=== PATIENT | female | born 1985 | race Hispanic/Latino ===

== ENCOUNTER 2016-06-14 19:59 | Emergency (ER) | payer MEDICAID ==
[~2016-06-14 19:59] MED LIST: IBUP800T28 PO; KEP500TA PO; ONDA-53 PO; TRAM50TA2 PO
[2016-06-14] MEDS ORDERED: 0.9% Sodium Chloride 1,000 ML IV ONE (20:05)
[2016-06-14] MEDS ORDERED: levETIRAcetam Inj 1,500 MG in Dextrose 5% 100 ML IV ONE (20:10)
[2016-06-14 20:13] LABS: BASOPHILS % (AUTO) 0.4 % (0-3); EOSINOPHILS % (AUTO) 5.3 % (0-5); MONOCYTES % (AUTO) 7.3 % (4-12); Mean Corpuscular Hemoglobin 27.5 pg (27.0-35.0); Mean Corpuscular Volume 82.1 fL (81-100); NEUTROPHILS % (AUTO) 49.6 % (40-74); Platelet Count 254 bil/L (150-400)
[2016-06-14] MEDS ORDERED: Ondansetron 2 mg/mL 2 mL Inj ONE (20:36)
[2016-06-14 20:40] VITALS: BP 136/71; PULSE 80; RESP 22; O2SAT 100
--- NOTE | 2016-06-14 21:16 | DRSVH ---
PROCEDURE: X-RAY CHEST ONE VIEW, PORTABLE ([id number]) INDICATIONS: recurrent LOC TECHNIQUE: One view of the chest was acquired. COMPARISON: [facility], CR, XR CHEST 1VW (PORTABLE), 01/12/2016, 7:47. [facility], CR, XR CHEST 2VW, 01/11/2016, 2:22. FINDINGS: Surgical changes and devices: None. Lungs and pleura: No pleural effusions or pneumothorax. Mild patchy right perihilar and basilar opac ity. Mediastinum: Mediastinal contours appear normal. Heart size is normal. Bones and chest wall: No suspicious bony lesions. Overlying soft tissues appear unremarkable. IMPRESSION: Right perihilar and basilar pneumonia. Dictated by: Karlie Tuttle M.D. on 06/14/2016 at 21:14 Approved by: Karlie Tuttle M.D. on 06/14/2016 at 21:14
--- NOTE | 2016-06-14 21:18 | ED.REPORT ---
HPI-General Illness Date of Service Jun 14, 2016 ED Provider: Adolfo Henry DO It should be noted that the initial presentation of this patient was a CODE BLUE called to the waiting room, to find the patient actively seizing on the ground. Ultimately after discussion with a family member and once the patient is more awake: Patient is a 30 year old female who presents to the ED due to three possible seizures today. Associated symptoms include feeling bloated and abdominal pain since this afternoon. Per the patient's friend while the patient was dropping her kids off, she started shaking and became unresponsive. When she woke up she was confused but was responsive. The patient had another episode on the way to the ED and in the bilingual medical receptionist area where she would begin shaking and became unresponsive. Nursing Notes Stated Complaint: UNCONSCIOUS, SEIZURE Chief Complaint: Seizure Nursing Notes Reviewed: Yes Allergies: Coded Allergies: fentanyl (Verified Allergy, Severe, ended up intubated, 01/12/16) morphine (Verified Allergy, Unknown, seizure, 09/15/15) hydromorphone (Verified Adverse Reaction, Severe, "made my chest feel heavy with pressure", 09/15/15) Scheduled Levetiracetam (Keppra) 500 Mg Tablet 500 MG PO BID Levetiracetam (Keppra) 500 Mg Tablet 500 MG PO BID Ondansetron (Ondansetron) 4 Mg Tablet 4 MG PO every 4 hours PRN Scheduled PRN Ibuprofen (Ibuprofen) 800 Mg Tablet 800 MG PO TID PRN PRN For Pain Tramadol (Tramadol) 50 Mg Tablet 50 MG PO Q4H PRN PRN For Pain General Time Seen by MD: 20:09 Chief Complaint Seizure Unable to Obtain Hx: Patient condition Arrived By: Walk-in Sudden in Onset?: Yes Onset Occurred: Just prior to arrival Symptom Duration: Intermittent Recent Healthcare: No recent hospitalization, Recent doctor visit Similar Sx Previous: No Past Medical History Past Medical History seizure--non compliant Past Surgical History gallbladder hernia repair Reports: Appendectomy Smoking History Current Every Day Smoker Social History Other Social History: Good social support Ambulatory Status Independent Review of Systems ROS is limited due to patient's condition Full Review of Systems GI: Reports: Abdominal pain Neurologic: Reports: Seizure, Shaking Complete sys rev & neg: except as marked. Physical Exam initial exam: patient was actively seizing while in the ED waiting room Vital Signs Vital Signs Date Time Temp Pulse Resp B/P Pulse Ox O2 Delivery O2 Flow Rate FiO2 06/14/16 23:18 77 23 110/60 98 Room Air 06/14/16 20:40 80 22 136/71 100 Room Air Initial VS: Reviewed General/Constitutional: Awake, Alert, No acute distress Head / Eyes: Atraumatic, Normocephalic, PERRL, EOMI ENT: Atraumatic, Airway patent, Mucous membranes moist Neck: Atraumatic, Supple, Full range of motion Respiratory / Chest: Atraumatic, Breath sounds NL, Breath sounds = bilat, No respiratory distress Cardiovascular: Heart rate NL, Regular rhythm, Heart sounds NL Abdomen: Atraumatic, Soft Back: Atraumatic, Full range of motion Upper Extremities Upper Extremity / MS: Atraumatic, Full range of motion Lower Extremity / Pelvis / MS: Atraumatic, Full range of motion Skin: Atraumatic, Color NL, No rash, Warm, Dry Neurologic: Oriented X3, Speech NL, No motor deficits, No sensory deficits Psychiatric: Affect NL, Mood NL Interpretation & Diagnostics Lab Results Interpretation Result Diagram: 06/14/16200906/14/162009 Test 06/14/16 20:10 06/14/16 20:35 06/14/16 21:48 White Blood Count 11.3th/mm3 (3.8-10.1) Red Blood Count 4.76mil/mm3 (3.90-5.20) Hemoglobin 13.1g/dL (12.0-15.6) Hematocrit 39.1% (35.0-46.0) Mean Corpuscular Volume 82.1fL (81-100) Mean Corpuscular Hemoglobin 27.5pg (27.0-35.0) Mean Corpuscular Hemoglobin Concent 33.5% (32.0-37.0) Red Cell Distribution Width 13.7% (12.3-15.4) Platelet Count 254bil/L (150-400) Neutrophils (%) (Auto) 49.6% (40-74) Lymphocytes (%) (Auto) 37.2% (14-46) Monocytes (%) (Auto) 7.3% (4-12) Eosinophils (%) (Auto) 5.3% (0-5) Basophils (%) (Auto) 0.4% (0-3) Sodium Level 138mEq/L (134-144) Potassium Level 4.2mEq/L (3.5-5.2) Chloride Level 103mEq/L (97-108) Carbon Dioxide Level 20mmol/L (18-29) Blood Urea Nitrogen 16mg/dL (6-20) Creatinine 0.63mg/dL (0.57-1.00) Estimat Glomerular Filtration Rate 158mL/min (>59) Glucose Level 102mg/dL (60-99) Calcium Level 9.2mg/dL (8.5-10.1) Magnesium Level 2.0mg/dL (1.6-2.6) Total Bilirubin 0.2mg/dL (0.0-1.2) Aspartate Amino Transf (AST/SGOT) 18U/L (0-50) Alanine Aminotransferase (ALT/SGPT) 28U/L (0-32) Alkaline Phosphatase 98U/L (25-150) Total Protein 7.8g/dL (6.4-8.4) Albumin 4.4g/dL (3.4-5.0) Hold Thornton Top Tube Received (Received) Alcohols < 10mg/dL (0-10) Hold Irving Top Tube Received (Received) Urine Color Straw (YELLOW) Urine Appearance Clear (CLEAR,HAZY) Urine pH 7.5 (5.0-8.0) Urine Specific [place] 1.010 (1.003-1.035) Urine Protein Negativemg/dL (NEG,TRACE) Urine Glucose (UA) Negativemg/dL (NEGATIVE) Urine Ketones Negativemg/dL (NEGATIVE) Urine Occult Blood Negative (NEGATIVE) Urine Nitrite Negative (NEGATIVE) Urine Bilirubin Negative (NEGATIVE) Urine Urobilinogen Normalmg/dL (NORMAL) Urine Leukocyte Esterase Small (NEGATIVE) Urine RBC 0-2/hpf (0-2) Urine WBC 6-10/hpf (0-5) Urine Epithelial Cells Moderate/hpf (NONE-MOD) Urine Crystals None seen (NONE SEEN) Urine Bacteria Few/hpf (NONE-FEW) Urine Hyaline Casts None/lpf (NONE) Urine Granular Casts None seen (NONE SEEN) Urine Waxy Casts None seen (NONE SEEN) Urine Red Blood Cell Casts None seen (NONE SEEN) Urine White Blood Cell Casts None seen (NONE SEEN) Urine Mucus None seen (None Seen) Urine Trichomonas None seen (NONE SEEN) Urine Yeast None (NONE SEEN) Urinalysis Comment None Urine Culture Reflexed Indicated ECG Interpretation Time: 21:37 Interpreted by: ED physician Normal ECG Interpretation: Normal rate (79), Normal sinus rhythm X-Ray Chest Interpretation Chest Xray Interpretation: IMPRESSION: Right perihilar and basilar pneumonia. Dictated by: Karlie Tuttle M.D. on 06/14/2016 at 21:14 Approved by: Karlie Tuttle M.D. on 06/14/2016 at 21:14 View: Portable, 1 view Interpretation / Wet Read by: Interpret - Radiologist CT Head Interpretation IMPRESSION: No acute process. Dictated by: Karlie Tuttle M.D. on 06/14/2016 at 21:24 Approved by: Karlie Tuttle M.D. on 06/14/2016 at 21:25 Interpretation / Wet Read by: Interpret - Radiologist CT Abd / Pelvis Interpretation IMPRESSION: 1. No acute process. 2. Appendix not seen. No evidence of appendicitis. Dictated by: Karlie Tuttle M.D. on 06/14/2016 at 21:27 Approved by: Karlie Tuttle M.D. on 06/14/2016 at 21:33 Interpretation / Wet Read by: Interpret - Radiologist Re-Eval/Medical Decision Med Decision/Clinical Course This patient was initially called overhead as a CODE BLUE. I responded immediately to the waiting room and she subsequently required my immediate in full attention. She was brought to room 8. She was immediately placed on the monitor, IV access, oxygen, vital signs and telemetry were performed. She was initially seizing but very promptly stopped and was postictal. After short period of time she was awake and conversant. She did not initially require any medication to charles her seizures. She was initially listed as a Priti Guerrero and no medical information was able to be obtained and because of her mental status we had no clinical history as to what was going on. For this reason a more resource intensive workup was performed. After she subsequently became more awake it became more clear that she has an underlying history of seizures and once we were able to fully identify her name came to find out that she has previously been prescribed Breath and she states that she is noncompliant. She also is complaining of severe abdominal pain and has reassuring labs and an abdominal CT. She was loaded with 1500 mg of Keppra. Ultimately she has come around, she has been seizure-free since her initial presentation to the ER, I do not find any life-threatening pathology ultimately it seems that she has nonspecific abdominal pain as well as breakthrough seizures. She will be discharged in stable condition. A 1 month supply of Keppra 500 mg twice a day as prescribed. Return and follow-up precautions given. Source of Hx: Old records Time of Eval: 20:30 Re-Evaluation/Progress Note: Rechecked paitent to further gain information for patient's case. Time of Eval: 21:00 Patient Status: Condition improved Time of Eval: 22:47 Re-Evaluation/Progress Note: Patient is awake and alert. She would like to be discharged. Counseled Regarding: Diagnosis, Lab results, Need for follow-up, When/why to return to ED Discharge & Departure Primary Impression: Breakthrough seizure Disposition: Home Discharge Condition All VS Reviewed: Yes Condition: Stable Additional Instructions: No obvious cause for your abdominal pain, you had 3 seizures today which is likely due to noncompliance with your medication. It is absolutely imperative that you do not drive until your seizures have been controlled and you been seizure-free for at least 6 months. Begin taking Keppra 500 mg twice a day. A prescription has been provided. Follow-up with your primary care doctor or your surgeon for reevaluation of your abdominal pain. Return to ER as needed if worse. Crit Care Except Billable Proc Time Spent: 30-74 minutes Services Performed: Patient management by me, Time spent at bedside, Reviewing test results Critical Care Notes: See GASTON Rodriguez Attestation Portions of this note were transcribed by Heike Bauman. I, Dr. Henry personally performed the history, physical exam and medical decision-making; I reviewed and confirmed the accuracy of the information in the transcribed note. Signed by: Michael Pickett, 06/14/16 and 2247. Adolfo Henry DO Jun 14, 2016 21:18 Rosa Isela Bauman Jun 14, 2016 21:25
--- NOTE | 2016-06-14 21:27 | DRSVH ---
PROCEDURE: CT BRAIN WITHOUT CONTRAST ([id number]) INDICATIONS: recurrent seizures TECHNIQUE: Noncontrast 4.5 mm thick angled axial sections acquired from the foramen magnum to the vertex, with c oronal reformats. COMPARISON: [facility], CT, CT BRAIN WO CON, 01/11/2016, 1:47. FINDINGS: Image quality: Excellent. CSF spaces: Basal cisterns are patent. No extra-axial fluid collections. Ventricles are normal in size and shape. Brain: No midline shift. No intracranial masses or hemorrhage. Lind-white matter interface is norm al. Skull and face: Calvarium and visualized facial bones are intact, without suspicious lesions. Sinuses: Visualized sinuses and mastoids are clear. IMPRESSION: No acute process. Dictated by: Karlie Tuttle M.D. on 06/14/2016 at 21:24 Approved by: Karlie Tuttle M.D. on 06/14/2016 at 21:25
--- NOTE | 2016-06-14 21:34 | DRSVH ---
PROCEDURE: CT ABDOMEN AND PELVIS WITH CONTRAST ([id number]) INDICATIONS: abd pain TECHNIQUE: After the administration of intravenous contrast, 5 mm thick sections acquired from the diaphragm to the symphysis. 5 mm coronal and sagittal reformats were acquired. For radiation dose reduction, the following was used: automated exposure control, adjustment of mA and/or kV according to patient anita jeong. COMPARISON: [facility], CT, CT ABD PELVIS W CON, 01/12/2016, 10:04. FINDINGS: Image quality: Excellent. ABDOMEN: Lung bases: Lung bases are clear. Heart size is normal. Solid organs: Liver and spleen are normal in size and enhancement. Gallbladder is surgically absent . Biliary system is non dilated. Pancreas enhances normally. No adrenal nodules. Kidneys demonstr ate normal size and enhancement, without hydronephrosis. Peritoneum and bowel: Bowel loops demonstrate normal wall thickness and caliber. No free fluid or a ir. Appendix not seen. No evidence of appendicitis. Nodes and vessels: No retroperitoneal or mesenteric adenopathy by size criteria. Aorta and inferior vena cava are normal in size. Miscellaneous: No ventral hernias. PELVIS: Genitourinary: Bladder wall thickness is normal. Intrauterine device is present. Miscellaneous: No inguinal hernias or adenopathy. Bones: No suspicious bony lesions. No vertebral body compression fractures. IMPRESSION: 1. No acute process. 2. Appendix not seen. No evidence of appendicitis. Dictated by: Karlie Tuttle M.D. on 06/14/2016 at 21:27 Approved by: Karlie Tuttle M.D. on 06/14/2016 at 21:33
[2016-06-14 22:14] LABS: APPEARANCE,URINE CLEAR (CLEAR,HAZY); COLOR,URINE STRAW (YELLOW); OCCULT BLOOD,URINE NEGATIVE (NEGATIVE); PH,URINE 7.5 (5.0-8.0); UROBILINOGEN,URINE NORMAL (NORMAL)
[2016-06-14] MEDS ORDERED: KEP500TA PO (22:52)
[2016-06-14 23:18] VITALS: BP 110/60; PULSE 77; RESP 23; O2SAT 98
== END 2016-06-14 23:20 | disposition home or self-care (01) ==
LOC: SED 19:59 → EDUNIT# 19:59 → SED 23:20
DX: R56.9 Unspecified convulsions (principal); F17.200 Nicotine dependence, unspecified, uncomplicated; Z79.899 Other long term (current) drug therapy; Z88.5 Allergy status to narcotic agent
CPT/HCPCS: 36415; 70450; 71010; 74177; 80053; 81000; 81025; 83735; 85025; 87040; 87086; 87088; 93005; 94799; 96361; 96374; 96375; 99285; G0480; J1953; J2405; J7030; Q9967

== ENCOUNTER 2016-06-22 10:30 | Emergency (ER) | payer MEDICAID ==
[~2016-06-22] VITALS: Ht 170.2 cm; Wt 86.4 kg
[2016-06-22 10:40] VITALS: BP 116/63; PULSE 69; RESP 20; O2SAT 96
--- NOTE | 2016-06-22 10:40 | ED.REPORT ---
HPI-Seizure Date of Service June 22, 2016 ED Provider: Ann Church MD The patient is a 30 year old female with history of a seizure disorder and asthma, who presents to the emergency department by EMS after she had a seizure prior to arrival at work. The patient normally takes Keppra but has been off this medication for a few days. The patient reports difficulty getting her medication filled at the pharmacy. She was seen here for the same on 06/14. Nursing Notes Stated Complaint: SEIZURE Chief Complaint: Seizure Nursing Notes Reviewed: Yes Allergies: Coded Allergies: fentanyl (Verified Allergy, Severe, ended up intubated, 06/22/16) hydrocodone (Verified Allergy, Severe, itch, shortness of breath, 06/22/16) morphine (Verified Allergy, Unknown, seizure, 06/22/16) hydromorphone (Verified Adverse Reaction, Severe, "made my chest feel heavy with pressure", 06/22/16) Scheduled Levetiracetam (Keppra) 500 Mg Tablet 500 MG PO BID Levetiracetam (Keppra) 500 Mg Tablet 500 MG PO BID Levetiracetam (Keppra) 500 Mg Tablet 500 MG PO BID Ondansetron (Ondansetron) 4 Mg Tablet 4 MG PO every 4 hours PRN Scheduled PRN Ibuprofen (Ibuprofen) 800 Mg Tablet 800 MG PO TID PRN PRN For Pain Tramadol (Tramadol) 50 Mg Tablet 50 MG PO Q4H PRN PRN For Pain General Time Seen by Provider: 10:30 Chief Complaint Chief Complaint: Seizure, generalized Seizure Anatomic Location: Generalized Hx Obtained From: Patient, EMS Arrived By: Ambulance Onset Occurred: Just prior to arrival Symptom Duration: 1 - 15 minutes Recent Healthcare: No recent hospitalization Similar Sx Previous: Yes Past Medical History Past Medical History Seizure--non compliant Reports: Asthma Reports: Seizure disorder Past Surgical History Cholecystectomy Hernia repair Reports: Appendectomy Family History Noncontributory Smoking History Current Every Day Smoker Social History Alcohol Use: "Social" Drug Use: Denies drug use Other Social History: Good social support, Local resident Occupation [employer] [facility], lives with 4 children Ambulatory Status Independent Review of Systems Neurologic: Reports: Change LOC, Seizure Complete sys rev & neg: except as marked. Physical Exam Initial Vital Signs Vital Signs (First) Date Time Temp Pulse Resp B/P Pulse Ox O2 Delivery O2 Flow Rate FiO2 06/22/16 10:40 36.6 69 20 116/63 96 Room Air Initial VS: Reviewed Abdomen / GI: Soft, Non-tender, No guarding, No rebound, No distention Extremities: Vascular intact, Neuro intact Skin: Warm, Dry, No cyanosis GENERAL: post-ictal Neck: Supple, Full range of motion, No swelling Respiratory / Chest: Atraumatic, Breath sounds NL, Breath sounds = bilat, No respiratory distress, No rales, No rhonchi, No wheezing Cardiovascular: Heart rate NL, Regular rhythm Heart Sounds / Murmur: Positive: Diastolic murmur present. (III/) NEURO: Witnessed grand mal seizure during exam. She is postictal but she is not hyperreflexive. She is moving all extremities. Head / Eyes: Atraumatic, Normocephalic ENT: Atraumatic, Airway patent, Mucous membranes moist No loss of airway during seizure Interpretation & Diagnostics Lab Results Interpretation Result Diagram: 06/22/16 1045 06/22/16 1045 Test 06/22/16 10:45 06/22/16 13:50 White Blood Count 7.0th/mm3 (3.8-10.1) Red Blood Count 4.77mil/mm3 (3.90-5.20) Hemoglobin 13.1g/dL (12.0-15.6) Hematocrit 39.1% (35.0-46.0) Mean Corpuscular Volume 82.0fL (81-100) Mean Corpuscular Hemoglobin 27.5pg (27.0-35.0) Mean Corpuscular Hemoglobin Concent 33.5% (32.0-37.0) Red Cell Distribution Width 13.3% (12.3-15.4) Platelet Count 247bil/L (150-400) Neutrophils (%) (Auto) 61.1% (40-74) Lymphocytes (%) (Auto) 28.8% (14-46) Monocytes (%) (Auto) 4.4% (4-12) Eosinophils (%) (Auto) 5.0% (0-5) Basophils (%) (Auto) 0.6% (0-3) Sodium Level 137mEq/L (134-144) Potassium Level 3.7mEq/L (3.5-5.2) Chloride Level 100mEq/L (97-108) Carbon Dioxide Level 24mmol/L (18-29) Blood Urea Nitrogen 9mg/dL (6-20) Creatinine 0.63mg/dL (0.57-1.00) Estimat Glomerular Filtration Rate 158mL/min (>59) Glucose Level 98mg/dL (60-99) Calcium Level 8.8mg/dL (8.5-10.1) Magnesium Level 2.1mg/dL (1.6-2.6) Total Bilirubin 0.3mg/dL (0.0-1.2) Aspartate Amino Transf (AST/SGOT) 15U/L (0-50) Alanine Aminotransferase (ALT/SGPT) 22U/L (0-32) Alkaline Phosphatase 84U/L (25-150) Total Protein 7.4g/dL (6.4-8.4) Albumin 4.3g/dL (3.4-5.0) Hold Urine Received (Received) Re-Eval/Medical Decision Med Decision/Clinical Course seen for same on 06/14. Loaded with Keppra, Keppra 500 BID ordered a out pt. Per report, has been unable to fix RX due to insurance issues Had another, shorter, seizure just prior to discharge. Post ictal period brief, <5min. Discussion regarding admission vs home with friends to help and getting keppra filled and started tonight. She has help arranged for home, she feels that she can get the keppra filled tonight and take tonight's dose. Negotiated d/c home with understanding that she would return to the ER if there are any additional seizures today. Source of Hx: Old records, EMS Re-Evaluation/Progress #1: Time of Eval: 10:47 Re-Evaluation/Progress Note: The patient began seizing again. She was given Ativan. The seizure lasted 3 minutes and she is now still post-ictal. Re-Evaluation/Progress #2: Time of Eval: 12:43 Re-Evaluation/Progress Note: Rechecked the patient. She is sleepy from the Ativan and moderately hypotensive. Will give 1 L of fluid. She has had her Keppra bolus. Re-Evaluation/Progress #3: Time of Eval: 14:31 Re-Evaluation/Progress Note: Rechecked the patient. She is sleeping and awakes for a few seconds. She is still too somnolent to discuss her history. She does report that she feels cold. Re-Evaluation/Progress #4: Time of Eval: 16:12 Re-Evaluation/Progress Note: The patient is awake and ready to be discharged home. The patient reports history of chronic constipation. Now that she is more awake she complains of abdominal pain. This was slightly improved with a bowel movement. Will send home with magnesium citrate. Counseled Regarding: Diagnosis, Lab results, Need for follow-up, When/why to return to ED Discharge & Departure Impression: Primary Impression: Seizure Additional Impression: Chronic constipation Disposition: Home Discharge Condition All VS Reviewed: Yes Condition: Stable Additional Instructions: You had 2 more seizures today. You need to be on the Keppra as prescribed. I'm sorry you had difficulty getting it filled at the first pharmacy. I've given you a new prescription for Keppra 500mg am and pm. You need make sure you do not drive until you have had at least 6 months without a seizure. Make sure to drink the entire bottle of magnesium citrate when you get home to help you have a bowel movement and get rid of the belly pain. Referrals: NOPCP (PCP) Scribe Attestation Portions of this note were transcribed by Lizet Farah. I, Dr. Church personally performed the history, physical exam and medical decision-making; I reviewed and confirmed the accuracy of the information in the transcribed note. Signed by: Michael Smith, 06/22/2016 at 1645. Ann Church MD June 22, 2016 10:40 Lizet Farah June 22, 2016 10:54
[2016-06-22] MEDS ORDERED: SODIUM CHLORIDE IV ONE (10:50)
[2016-06-22] MEDS ORDERED: levETIRAcetam Inj 1,500 MG in Dextrose 5% 100 ML IV ONE (10:50)
[2016-06-22] MEDS ORDERED: LEVETIRACETAM IV ONE (10:50)
[2016-06-22 11:09] LABS: BASOPHILS % (AUTO) 0.6 % (0-3); MONOCYTES % (AUTO) 4.4 % (4-12); Mean Corpuscular Hemoglobin 27.5 pg (27.0-35.0); NEUTROPHILS % (AUTO) 61.1 % (40-74); Platelet Count 247 bil/L (150-400)
[2016-06-22 11:19] VITALS: BP 90/47; PULSE 77; RESP 22; O2SAT 98
[2016-06-22 11:43] LABS: Magnesium 2.1 mg/dL (1.6-2.6)
[2016-06-22 12:40] VITALS: BP 89/59; PULSE 84; RESP 24; O2SAT 98
[2016-06-22] MEDS ORDERED: 0.9% Sodium Chloride 1,000 ML IV ONE (12:45)
[2016-06-22 15:30] VITALS: BP 93/63; PULSE 73; RESP 16; O2SAT 98
[2016-06-22] MEDS ORDERED: KEP500TA PO (15:48)
[2016-06-22 16:51] VITALS: BP 92/55; PULSE 63; RESP 16; O2SAT 99
[2016-06-22] MEDS ORDERED: levETIRAcetam 500 mg/100 mL NS IV SCH ×2 (20:30)
== END 2016-06-22 17:21 | disposition home or self-care (01) ==
LOC: EDBD 10:30 → EDUNIT# 10:30 → SED 10:30
DX: G40.909 Epilepsy, unspecified, not intractable, without status epilepticus (principal); K59.04 Chronic idiopathic constipation; J45.909 Unspecified asthma, uncomplicated; F17.200 Nicotine dependence, unspecified, uncomplicated; Z88.5 Allergy status to narcotic agent
CPT/HCPCS: 36415; 80053; 83735; 85025; 96361; 96374; 96375; 99285; J1953; J2060; J7030

== ENCOUNTER 2016-07-04 12:23 | Emergency (ER) | payer MEDICAID ==
[~2016-07-04] VITALS: Ht 170.2 cm; Wt 86.4 kg
--- NOTE | 2016-07-04 12:26 | ED.REPORT ---
HPI-General Illness Date of Service July 04, 2016 ED Provider: Dr. Ann Church The patient is a 30 year old female w/ a hx of seizures who presents to the ED via EMS due to a seizure at just [employer]. She went to [facility] last week and talked to her doctor about her right sided abdominal pain. This morning she began to experience severe abdominal pain. The doctor said that he witnessed about 30 sec of catatonic behavior. The pt is writhing and in pain at the ED. The pt was seen 06/22/16 for a tonic/clonic seizure. Nursing Notes Stated Complaint: SEIZURE Nursing Notes Reviewed: Yes Allergies: Coded Allergies: fentanyl (Verified Allergy, Severe, ended up intubated, 07/04/16) hydrocodone (Verified Allergy, Severe, itch, shortness of breath, 07/04/16) morphine (Verified Allergy, Unknown, seizure, 07/04/16) hydromorphone (Verified Adverse Reaction, Severe, "made my chest feel heavy with pressure", 07/04/16) Scheduled Levetiracetam (Keppra) 500 Mg Tablet 500 MG PO BID Levetiracetam (Keppra) 500 Mg Tablet 500 MG PO BID Levetiracetam (Keppra) 500 Mg Tablet 500 MG PO BID Ondansetron (Ondansetron) 4 Mg Tablet 4 MG PO every 4 hours PRN Scheduled PRN Ibuprofen (Ibuprofen) 800 Mg Tablet 800 MG PO TID PRN PRN For Pain Tramadol (Tramadol) 50 Mg Tablet 50 MG PO Q4H PRN PRN For Pain General Time Seen by MD: 12:26 Chief Complaint Other (possible seizure) Hx Obtained From: Patient, EMS Arrived By: Ambulance Sudden in Onset?: Yes Onset Occurred: Just prior to arrival Symptom Duration: Since onset Location: : Abdomen Quality: Painful Severity: Current: Severe Recent Healthcare: Recent doctor visit Similar Sx Previous: Yes Past Medical History Past Medical History Seizure--non compliant Reports: Asthma Reports: Seizure disorder Past Surgical History Cholecystectomy Hernia repair Reports: Appendectomy Family History Noncontributory Smoking History Current Every Day Smoker Social History Alcohol Use: "Social" Drug Use: Denies drug use Other Social History: Good social support, Local resident 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 Physical Exam Vital Signs Vital Signs Date Time Temp Pulse Resp B/P Pulse Ox O2 Delivery O2 Flow Rate FiO2 07/04/16 15:18 36.6 70 18 109/58 98 Room Air 07/04/16 13:28 69 16 122/42 93 Room Air 07/04/16 12:39 36.2 62 24 121/73 98 Room Air Initial VS: Reviewed ENT: Mucous membranes moist Back: No CVA tenderness Extremities: Vascular intact, Neuro intact, No swelling, No tenderness Skin: Warm, Dry General/Constitutional: Awake, Alert well profused not post-ictal not hyperreflexic Respiratory / Chest: Atraumatic, Breath sounds NL, Breath sounds = bilat, No respiratory distress Cardiovascular: Heart rate NL, Regular rhythm, Heart sounds NL, No gallop, No murmurs, No rubs Abdomen: Soft writhing in pain from right sided chest and right upper quadrant pain Interpretation & Diagnostics Lab Results Interpretation Result Diagram: 07/04/16 1347 07/04/16 1347 Test 07/04/16 13:47 White Blood Count 10.3th/mm3 (3.8-10.1) Red Blood Count 4.44mil/mm3 (3.90-5.20) Hemoglobin 12.1g/dL (12.0-15.6) Hematocrit 36.1% (35.0-46.0) Mean Corpuscular Volume 81.3fL (81-100) Mean Corpuscular Hemoglobin 27.3pg (27.0-35.0) Mean Corpuscular Hemoglobin Concent 33.5% (32.0-37.0) Red Cell Distribution Width 13.2% (12.3-15.4) Platelet Count 251bil/L (150-400) Neutrophils (%) (Auto) 71.3% (40-74) Lymphocytes (%) (Auto) 19.5% (14-46) Monocytes (%) (Auto) 4.6% (4-12) Eosinophils (%) (Auto) 3.8% (0-5) Basophils (%) (Auto) 0.6% (0-3) Sodium Level 136mEq/L (134-144) Potassium Level 3.5mEq/L (3.5-5.2) Chloride Level 101mEq/L (97-108) Carbon Dioxide Level 21mmol/L (18-29) Blood Urea Nitrogen 12mg/dL (6-20) Creatinine 0.57mg/dL (0.57-1.00) Estimat Glomerular Filtration Rate 177mL/min (>59) Glucose Level 91mg/dL (60-99) Calcium Level 9.0mg/dL (8.5-10.1) Total Bilirubin < 0.2mg/dL (0.0-1.2) Aspartate Amino Transf (AST/SGOT) 25U/L (0-50) Alanine Aminotransferase (ALT/SGPT) 32U/L (0-32) Alkaline Phosphatase 80U/L (25-150) Total Protein 7.0g/dL (6.4-8.4) Albumin 3.6g/dL (3.4-5.0) Hold Thornton Top Tube Received (Received) X-Ray Chest Interpretation Chest Xray Interpretation: IMPRESSION: Prominence of the pulmonary vasculature likely is exaggerated by shallow inspiration. No definite pneumonia. Dictated by: Phil Sagastume M.D. on 07/04/2016 at 11:57 Approved by: Phil Sagastume M.D. on 07/04/2016 at 12:03 View: Portable Interpretation / Wet Read by: Interpret - Radiologist Re-Eval/Medical Decision Med Decision/Clinical Course Comes in with severe right-sided pain after a seizure. Call was nicely with a milligram of Ativan and Toradol. Pain is essentially resolved and she is sleeping quietly. Labs and studies are unremarkable. She is reassured and discharged to home. Counseled Regarding: Diagnosis, Lab results, Need for follow-up, When/why to return to ED Discharge & Departure Primary Impression: Right-sided chest pain Additional Impression: Abdominal pain Abdominal location: unspecified location Qualified Code: R10.9 - Unspecified abdominal pain Disposition: Home Discharge Condition All VS Reviewed: Yes Condition: Stable Additional Instructions: Your imaging does not show any pneumonia, a collapsed lung, or any acute findings. Follow up with your primary care physician as needed for further evaluation. Return to the Emergency Department for any new or worsening symptoms. I hope you feel better soon! Referrals: Amber Chowdary MD (PCP) Scribe Attestation Portion of this note were transcribed by Mallory Cho. I, Dr. Ann Church, personally performed the history, physical exam, and medical decision-making: I reviewed and confirmed the accuracy for the information in the transcribed note. Signed by: kesha Landry, 07/04/16 1500 copies to: Amber Chowdary MD, Shawna L MD July 04, 2016 12:26 Mallory Cho July 04, 2016 12:35
[2016-07-04 12:39] VITALS: BP 121/73; PULSE 62; RESP 24; O2SAT 98
--- NOTE | 2016-07-04 13:04 | DRSVH ---
PROCEDURE: X-RAY CHEST ONE VIEW, PORTABLE ([id number]) INDICATIONS: right side chest pain TECHNIQUE: One view of the chest was acquired. COMPARISON: [facility], CR, XR CHEST 1VW (PORTABLE), 01/12/2016, 7:47. FINDINGS: Surgical changes and devices: None. Lungs and pleura: The pulmonary vasculature is slightly increased, which may be exaggerated by shallo w inspiration. No lobar consolidation, large effusion, or pneumothorax is evident. Mediastinum: Mediastinal contours appear normal. Heart size is normal. Bones and chest wall: No suspicious bony lesions. Overlying soft tissues appear unremarkable. IMPRESSION: Prominence of the pulmonary vasculature likely is exaggerated by shallow inspiration. No definite pneumonia. Dictated by: Phil Sagastume M.D. on 07/04/2016 at 11:57 Approved by: Phil Sagastume M.D. on 07/04/2016 at 12:03
[2016-07-04 13:28] VITALS: BP 122/42; PULSE 69; RESP 16; O2SAT 93
[2016-07-04 13:58] LABS: BASOPHILS % (AUTO) 0.6 % (0-3); EOSINOPHILS % (AUTO) 3.8 % (0-5); MONOCYTES % (AUTO) 4.6 % (4-12); Mean Corpuscular Hemoglobin 27.3 pg (27.0-35.0); Mean Corpuscular Volume 81.3 fL (81-100); NEUTROPHILS % (AUTO) 71.3 % (40-74); Platelet Count 251 bil/L (150-400)
[2016-07-04 15:18] VITALS: BP 109/58; PULSE 70; RESP 18; O2SAT 98
[2016-07-04 15:41] VITALS: BP 109/58; PULSE 70; RESP 18; O2SAT 98
== END 2016-07-04 15:43 | disposition home or self-care (01) ==
LOC: SED 12:23
DX: R07.89 Other chest pain (principal); R10.9 Unspecified abdominal pain; R56.9 Unspecified convulsions; J45.909 Unspecified asthma, uncomplicated; F17.200 Nicotine dependence, unspecified, uncomplicated; Z88.5 Allergy status to narcotic agent; Z88.8 Allergy status to other drugs, medicaments and biological substances
CPT/HCPCS: 36415; 71010; 80053; 80299; 85025; 96374; 96375; 99285; J1885; J2060

== ENCOUNTER 2016-09-28 08:32 | Emergency (ER) | payer SELFPAY ==
[2016-09-28 08:32] VITALS: BP 120/65; PULSE 66; RESP 16; O2SAT 100
[2016-09-28] MEDS ORDERED: oxyCODONE-Acetamin 10-325 mg Tablet PO ONE (08:45)
--- NOTE | 2016-09-28 08:47 | ED.REPORT ---
HPI-Abd Pain F Under 40 Date of Service Sep 28, 2016 ED Provider: lFo Chavira MD Patient is a 30 year old female with a hx of seizures who presents to the ED via EMS s/p having a seizure in the waiting room at the [facility]. She also had a seizure en route from that lasted about 45 seconds. Patient was at for a distended abdomen onset several months ago with R sided pain that developed overnight. Records indicate that the patient had a similar presentation 3 months ago. She denies vomiting, cough, fever, constipation, urinary retention or any other symptoms. Pt is writhing in bed. Per family, when she comes out of seizures she is confused and agitated. Her dose of Keppra was recently increased and she has been non-compliant this week. Nursing Notes Stated Complaint: SEIZURE Chief Complaint: General Complaint Nursing Notes Reviewed: Yes Allergies: Coded Allergies: fentanyl (Verified Allergy, Severe, ended up intubated, 07/04/16) hydrocodone (Verified Allergy, Severe, itch, shortness of breath, 09/28/16) morphine (Verified Allergy, Unknown, seizure, 09/28/16) hydromorphone (Verified Adverse Reaction, Severe, "made my chest feel heavy with pressure", 09/28/16) Scheduled Levetiracetam (Keppra) 500 Mg Tablet 500 MG PO BID Levetiracetam (Keppra) 500 Mg Tablet 500 MG PO BID Levetiracetam (Keppra) 500 Mg Tablet 500 MG PO BID Ondansetron (Ondansetron) 4 Mg Tablet 4 MG PO every 4 hours PRN Scheduled PRN Ibuprofen (Ibuprofen) 800 Mg Tablet 800 MG PO TID PRN PRN For Pain Tramadol (Tramadol) 50 Mg Tablet 50 MG PO Q4H PRN PRN For Pain General Time Seen by MD: 08:34 Chief Complaint Other (Seizure ) Hx Obtained From: Patient, EMS Arrived By: Ambulance Sudden in Onset?: Yes Onset Occurred: Just prior to arrival Location: : RLQ: RUQ Radiation: : Does not radiate Severity: Current: Severe Severity: Maximum: Severe Similar Sx Previous: Yes Past Medical History Past Medical History Seizure--non compliant Reports: Asthma Reports: Seizure disorder Past Surgical History Cholecystectomy Hernia repair Reports: Appendectomy Family History Noncontributory Smoking History Current Every Day Smoker Social History Alcohol Use: "Social" Drug Use: Denies drug use Other Social History: Good social support, Local resident 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 Neurologic: Reports: Seizure Physical Exam Initial Vital Signs Vital Signs (First) Date Time Temp Pulse Resp B/P Pulse Ox O2 Delivery O2 Flow Rate FiO2 09/28/16 08:32 36.6 66 16 120/65 100 09/28/16 09:49 Room Air Initial VS: Reviewed, Vital signs normal Head / Eyes: Atraumatic, Normocephalic Neck: Full range of motion Skin: Warm, Dry Neurologic: Alert, Oriented, Nonfocal Psychiatric: Mood/affect normal, Behavior normal, Normal thought content General/Constitutional: Awake, Alert Distress / Hydration: Positive: Distress moderate Respiratory / Chest: Breath sounds NL, Breath sounds = bilat, No respiratory distress Cardiovascular: Heart rate NL, Regular rhythm, Heart sounds NL Abdomen: BS normoactive abdomen is protuberant US reveals no free fluid inconsistently tender soft, no mass or guarding Back: Atraumatic Interpretation & Diagnostics Lab Results Interpretation Result Diagram: 09/28/16 0911 09/28/16 0911 Test 09/28/16 08:56 09/28/16 09:11 Urine Color Yellow (YELLOW) Urine Appearance Hazy (CLEAR,HAZY) Urine pH 5.5 (5.0-8.0) Urine Specific [place] 1.030 (1.003-1.035) Urine Protein Negativemg/dL (NEG,TRACE) Urine Glucose (UA) Negativemg/dL (NEGATIVE) Urine Ketones Negativemg/dL (NEGATIVE) Urine Occult Blood Negative (NEGATIVE) Urine Nitrite Negative (NEGATIVE) Urine Bilirubin Negative (NEGATIVE) Urine Urobilinogen Normalmg/dL (NORMAL) Urine Leukocyte Esterase Negative (NEGATIVE) Urine RBC 0-2/hpf (0-2) Urine WBC 0-5/hpf (0-5) Urine Epithelial Cells Occasional/hpf (NONE-MOD) Urine Crystals None seen (NONE SEEN) Urine Bacteria Many/hpf (NONE-FEW) Urine Hyaline Casts None/lpf (NONE) Urine Granular Casts None seen (NONE SEEN) Urine Waxy Casts None seen (NONE SEEN) Urine Red Blood Cell Casts None seen (NONE SEEN) Urine White Blood Cell Casts None seen (NONE SEEN) Urine Mucus Present (None Seen) Urine Trichomonas None seen (NONE SEEN) Urine Yeast None (NONE SEEN) Urinalysis Comment None Urine Culture Reflexed Indicated White Blood Count 6.1th/mm3 (3.8-10.1) Red Blood Count 4.69mil/mm3 (3.90-5.20) Hemoglobin 13.0g/dL (12.0-15.6) Hematocrit 38.5% (35.0-46.0) Mean Corpuscular Volume 82.1fL (81-100) Mean Corpuscular Hemoglobin 27.7pg (27.0-35.0) Mean Corpuscular Hemoglobin Concent 33.8% (32.0-37.0) Red Cell Distribution Width 13.5% (12.3-15.4) Platelet Count 206bil/L (150-400) Neutrophils (%) (Auto) 46.5% (40-74) Lymphocytes (%) (Auto) 38.3% (14-46) Monocytes (%) (Auto) 6.3% (4-12) Eosinophils (%) (Auto) 7.9% (0-5) Basophils (%) (Auto) 0.8% (0-3) Sodium Level 140mEq/L (134-144) Potassium Level 4.3mEq/L (3.5-5.2) Chloride Level 105mEq/L (97-108) Carbon Dioxide Level 23mmol/L (18-29) Blood Urea Nitrogen 11mg/dL (6-20) Creatinine 0.56mg/dL (0.57-1.00) Estimat Glomerular Filtration Rate 181mL/min (>59) Glucose Level 95mg/dL (60-99) Calcium Level 8.6mg/dL (8.5-10.1) Total Bilirubin 0.2mg/dL (0.0-1.2) Aspartate Amino Transf (AST/SGOT) 15U/L (0-50) Alanine Aminotransferase (ALT/SGPT) 19U/L (0-32) Alkaline Phosphatase 80U/L (25-150) Total Protein 6.7g/dL (6.4-8.4) Albumin 3.9g/dL (3.4-5.0) Lipase 20U/L (13-60) Hold Thornton Top Tube Received (Received) Lab Results Interpretation: Bedside ultrasound reveals 700-800 mL of urine in bladder, no intrauterine Re-Eval/Medical Decision Med Decision/Clinical Course The patient had a nearly identical presentation earlier this year in June. There has been extensive evaluation of her abdomen in the past. Laboratory data and repeat examination are benign at this point. I believe the explanation for her seizure is noncompliance of medication. We of course loaded her with Keppra and recommended that she resume outpatient doses of same. We have referred her to local primary care. Re-Evaluation/Progress #1: Time of Eval: 09:53 Re-Evaluation/Progress Note: Rechecked pt who is now sleeping. Re-Evaluation/Progress #2: Time of Eval: 10:36 Re-Evaluation/Progress Note: Rechecked pt who is very sleepy. Family is in the room. Discussed plan for discharge. Patient understands and agrees with plan. All questions addressed at this time. Counseled Regarding: Diagnosis, Lab results, Need for follow-up, When/why to return to ED Discharge & Departure Primary Impression: Abdominal pain Abdominal location: generalized Qualified Code: R10.84 - Generalized abdominal pain Additional Impression: Seizure Disposition: Home Discharge Condition All VS Reviewed: Yes Condition: Stable Patient Instructions: Abdominal Pain (ED) Additional Instructions: No dangerous cause for your abdominal pain is discovered or suspected at this time. I recommend follow-up with primary care as listed below for further investigation is needed. You have had a couple of seizures today. We gave you a gram of Keppra intravenously. Please resume your oral Keppra doses today with regular doses today as well. Referrals: Johnson Mccauley Attestation Portions of this note were transcribed by Marika Yadav. I, Dr. Chavira personally performed the history, physical exam and medical decision-making; I reviewed and confirmed the accuracy of the information in the transcribed note. Signed by: Michael Ponce, 09/28/16 copies to: Johnson Mccauley Kirk H MD Sep 28, 2016 08:47 MARIKA YADAV Sep 28, 2016 08:49
[2016-09-28] MEDS ORDERED: levETIRAcetam Inj 1,000 MG in IV Premix 1 EACH IV ONE (09:00)
[2016-09-28 09:23] LABS: BASOPHILS % (AUTO) 0.8 % (0-3); EOSINOPHILS % (AUTO) 7.9 % (0-5); MONOCYTES % (AUTO) 6.3 % (4-12); Mean Corpuscular Hemoglobin 27.7 pg (27.0-35.0); Mean Corpuscular Volume 82.1 fL (81-100); NEUTROPHILS % (AUTO) 46.5 % (40-74); Platelet Count 206 bil/L (150-400)
[2016-09-28 09:28] LABS: APPEARANCE,URINE HAZY (CLEAR,HAZY); COLOR,URINE YELLOW (YELLOW); PH,URINE 5.5 (5.0-8.0)
[2016-09-28 09:29] LABS: OCCULT BLOOD,URINE NEGATIVE (NEGATIVE); UROBILINOGEN,URINE NORMAL (NORMAL)
[2016-09-28 09:49] VITALS: BP 113/75; PULSE 59; RESP 15; O2SAT 96
[2016-09-28 10:43] VITALS: BP 105/60; PULSE 60; RESP 16; O2SAT 100
[2016-09-28 10:45] VITALS: BP 105/60; PULSE 60; RESP 16; O2SAT 100
== END 2016-09-28 11:11 | disposition home or self-care (01) ==
LOC: EDBD 08:32 → SED 08:32
DX: R10.84 Generalized abdominal pain (principal); R56.9 Unspecified convulsions; J45.909 Unspecified asthma, uncomplicated; F17.200 Nicotine dependence, unspecified, uncomplicated; Z90.49 Acquired absence of other specified parts of digestive tract; Z90.89 Acquired absence of other organs; Z88.5 Allergy status to narcotic agent
CPT/HCPCS: 36415; 80053; 81000; 81025; 83690; 85025; 87086; 87088; 96365; 96375; 99285; J1885; J1953; J2060